=== PATIENT | male | born 1935 | race Caucasian/White ===

== ENCOUNTER 2018-09-02 19:58 | Inpatient (IN) ==
[2018-09-02] MEDS ORDERED: ONDANSETRON 4 MG/2 ML VIAL IV PRN (23:05)
[2018-09-02] MEDS ORDERED: ACETAMINOPHEN 325 MG TABLET PO PRN (23:05)
[2018-09-02] MEDS ORDERED: GLUCAGON 1 MG VIAL IM PRN (23:05)
[2018-09-02] MEDS ORDERED: DEXTROSE 50% 25 GM/50 ML VIAL IV PRN (23:05)
[2018-09-02] MEDS ORDERED: NICOTINE 21 MG/24 HR PATCH TRANSDERM PRN (23:05)
[2018-09-02] MEDS ORDERED: AZITHROMYCIN INJ 500 MG in SODIUM CHLORIDE 0.9% 250 ML IV SCH (23:30)
[2018-09-03 00:49] LABS: Basophils # 0.1 10*3/uL (0.0-0.2); Basophils % 1.1 % (0.0-0.8); Eosinophils # 0.6 10*3/uL (0.0-0.87); Eosinophils % 7.1 % (0.00-10.9); Hematocrit 55.1 VOL% (42.0-52.0); Hemoglobin 17.2 GM/DL (14.0-18.0); Immature Granulocytes % 0.4 %; Immature Granulocytes Absolute 0.03 #; Lymphocytes % 24.6 % (21.2-54.2); Mean Corpuscular HGB Conc 31.2 GM/DL (32-36); Mean Corpuscular Volume 91.8 FL (87-102); Mean Platelet Volume 12.6 FL (9.6-12.0); Monocytes % 12.7 % (1.7-12.7); Neutrophils % 54.1 % (38.7-73.9); Platelet Count 205 T/CUMM (130-400); Red Cell Distribution Width 15.2 % (9.3-17.3)
[2018-09-03 00:54] LABS: INR 1.9; PT Patient Result 20.3 SECS
[2018-09-03 01:28] LABS: Albumin 3.3 G/DL (3.4-5.0); Bilirubin,Total 1.2 MG/DL (0.2-1.0); Calcium 9.2 MG/DL (8.5-10.1); Osmolality,Calculated 302.4 MOS/KG (273-304); Thyroid Stimulating Hormone 0.476 uIU/ml (0.358-3.74); Total Protein 7.8 G/DL (6.4-8.3)
[2018-09-03] MEDS ORDERED: LEVOFLOXACIN INJ 500 MG in PREMIX 1 EACH IV SCH (02:00)
[2018-09-03 04:42] LABS: Apearance,Urine CLEAR (Clear); Bilirubin,Urine Negative (Negative); Blood, Urine Large mg/dL (Negative); Glucose,Urine (UA) Negative (Negative); Hyaline Casts,Urine 3 /LPF (0-3); Ketones,Urine Negative (Negative); Mucus,Urine Occasional /LPF (Occasional); Nitrite,Urine Negative (Negative); Protein,Urine 100 MG/DL; RBC,Urine 337 /HPF (0-4); Squamous Epithelial Cell,Urine Occasional /HPF (0-10); Urine Color Yellow (Yellow); Urine Specific Gravity 1.009 (1.001-1.035); Urine Urobilinogen < 2.0 EU/DL (0.2-1.0); WBC,Urine 1 /HPF (0-6)
[2018-09-03] MEDS: INSULIN LISPRO 100 UNIT/ML SUBCUT SCH ×4 (09:03→20:58)
[2018-09-03] MEDS: ISOSORBIDE MONONITRATE 60 MG TABLET PO SCH (09:04)
[2018-09-03] MEDS: DOCUSATE SODIUM 100 MG CAPSULE PO PRN (09:04)
[2018-09-03] MEDS: CARVEDILOL 12.5 MG TABLET PO SCH ×2 (09:05→20:57)
[2018-09-03] MEDS: PANTOPRAZOLE 40 MG TABLET PO SCH (09:05)
[2018-09-03] MEDS: LISINOPRIL/HCTZ 10-12.5 MG TABLET PO SCH (09:05)
[2018-09-03] MEDS: DILTIAZEM CD 240 MG CAPSULE PO SCH (09:06)
[2018-09-03] MEDS ORDERED: DIGOXIN 0.125 MG TABLET PO SCH (13:00)
[2018-09-03] MEDS: FUROSEMIDE 40 MG/4 ML VIAL IV SCH (15:49)
[2018-09-03] MEDS: WARFARIN 5 MG TABLET PO SCH (17:27)
[2018-09-04 05:18] LABS: Basophils # 0.1 10*3/uL (0.0-0.2); Basophils % 0.8 % (0.0-0.8); Eosinophils # 0.5 10*3/uL (0.0-0.87); Eosinophils % 5.2 % (0.00-10.9); Hematocrit 49.6 VOL% (42.0-52.0); Hemoglobin 15.7 GM/DL (14.0-18.0); Immature Granulocytes % 0.5 %; Immature Granulocytes Absolute 0.04 #; Lymphocytes # 1.6 10*3/uL (1.4-4.0); Lymphocytes % 18.4 % (21.2-54.2); Mean Corpuscular HGB Conc 31.7 GM/DL (32-36); Mean Corpuscular Volume 90.2 FL (87-102); Mean Platelet Volume 13.3 FL (9.6-12.0); Monocytes % 11.6 % (1.7-12.7); Neutrophils % 63.5 % (38.7-73.9); Platelet Count 201 T/CUMM (130-400); Red Cell Distribution Width 14.6 % (9.3-17.3); White Blood Count 8.9 T/CUMM (4-12)
[2018-09-04 05:23] LABS: INR 1.7
[2018-09-04 05:45] LABS: Calcium 8.7 MG/DL (8.5-10.1)
[2018-09-04] MEDS: INSULIN LISPRO 100 UNIT/ML SUBCUT SCH ×4 (09:35→21:30)
[2018-09-04] MEDS: ISOSORBIDE MONONITRATE 60 MG TABLET PO SCH (09:36)
[2018-09-04] MEDS: PANTOPRAZOLE 40 MG TABLET PO SCH (09:42)
[2018-09-04] MEDS: DOCUSATE SODIUM 100 MG CAPSULE PO PRN (09:42)
[2018-09-04] MEDS: LISINOPRIL/HCTZ 10-12.5 MG TABLET PO SCH (09:43)
[2018-09-04] MEDS: FUROSEMIDE 40 MG/4 ML VIAL IV SCH ×2 (09:45→16:17)
[2018-09-04] MEDS: CARVEDILOL 25 MG TABLET PO SCH ×2 (09:53→21:30)
[2018-09-04] MEDS: POTASSIUM CHLORIDE 20 MEQ TABLET PO SCH (09:53)
[2018-09-04] MEDS: DILTIAZEM CD 240 MG CAPSULE PO SCH (10:27)
[2018-09-04] MEDS: ALBUTEROL/IPRATROPIUM 3 ML NEB RESP TX SCH ×2 (13:21→19:20)
[2018-09-04] MEDS: WARFARIN 5 MG TABLET PO SCH (17:17)
[2018-09-04] MEDS: CARVEDILOL 12.5 MG TABLET PO SCH (17:59)
[2018-09-04] MEDS ORDERED: AZITHROMYCIN 250 MG TABLET PO SCH (21:00)
[2018-09-05] MEDS: ALBUTEROL/IPRATROPIUM 3 ML NEB RESP TX SCH ×3 (00:04→12:03)
[2018-09-05 05:04] LABS: Basophils # 0.1 10*3/uL (0.0-0.2); Eosinophils # 0.3 10*3/uL (0.0-0.87); Eosinophils % 3.2 % (0.00-10.9); Hematocrit 48.6 VOL% (42.0-52.0); Hemoglobin 15.5 GM/DL (14.0-18.0); Immature Granulocytes % 0.4 %; Immature Granulocytes Absolute 0.04 #; Lymphocytes # 1.8 10*3/uL (1.4-4.0); Lymphocytes % 17.2 % (21.2-54.2); Mean Corpuscular HGB Conc 31.9 GM/DL (32-36); Mean Platelet Volume 12.9 FL (9.6-12.0); Monocytes % 12.7 % (1.7-12.7); Neutrophils % 65.5 % (38.7-73.9); Platelet Count 202 T/CUMM (130-400); Red Cell Distribution Width 14.6 % (9.3-17.3); White Blood Count 10.2 T/CUMM (4-12)
[2018-09-05 05:21] LABS: Calcium 8.6 MG/DL (8.5-10.1); Osmolality,Calculated 293.4 MOS/KG (273-304)
[2018-09-05 05:28] LABS: INR 1.7; PT Patient Result 18.4 SECS
[2018-09-05] MEDS: INSULIN LISPRO 100 UNIT/ML SUBCUT SCH ×2 (08:04→12:01)
[2018-09-05] MEDS: CARVEDILOL 25 MG TABLET PO SCH (09:05)
[2018-09-05] MEDS: DOCUSATE SODIUM 100 MG CAPSULE PO PRN (09:06)
[2018-09-05] MEDS: LISINOPRIL/HCTZ 10-12.5 MG TABLET PO SCH (09:06)
[2018-09-05] MEDS: FUROSEMIDE 40 MG/4 ML VIAL IV SCH (09:06)
[2018-09-05] MEDS: ISOSORBIDE MONONITRATE 60 MG TABLET PO SCH (09:06)
[2018-09-05] MEDS: PANTOPRAZOLE 40 MG TABLET PO SCH (09:09)
[2018-09-05] MEDS: POTASSIUM CHLORIDE 20 MEQ TABLET PO SCH (09:09)
[2018-09-05] MEDS: DILTIAZEM CD 240 MG CAPSULE PO SCH (09:15)
[2018-09-05 12:32] VITALS: BP 134/90
== END 2018-09-05 14:32 | disposition hospice, home (50) | DRG 291 ==
LOC: N.TELES 21:59
PROVIDERS: ADMIT Internal Medicine; ATTEND Family Medicine